=== PATIENT | female | born 1955 | race African-American/Black ===

== ENCOUNTER 2017-12-23 12:56 | Observation (INO) | payer OTHER ==
[~2017-12-23] VITALS: Ht 165.1 cm; Wt 70.4 kg
--- NOTE | 2017-12-23 13:00 | NUR ---
PT TO ROOM 9 VIA WC. PT ABLE TO STAND AND TRANSFER SELF WITHOUT ASSIST.
--- NOTE | 2017-12-23 13:40 | NUR ---
PATIENT MEDICATED PER MD ORDER TOLERATED WELL. CALL LIGHT GIVEN, INFORMED TO CALL FOR ASSISTACNE. VERBAL UNDERSTANDING.
[2017-12-23 13:57] LABS: HEMATOCRIT 27.6 % (37.0-47.0); HEMOGLOBIN 10.1 g/dl (12.0-16.0); IMMATURE GRANULOCYTES 0.2 % (0.0-1.0); MEAN CELL VOLUME 82.6 fL CALC (80.0-100.0); MEAN CORPUSCULAR HGB 30.2 pG CALC (26.0-32.0); MEAN CORPUSCULAR HGB CONC 36.6 g/L CALC (32.0-36.0); NEUT# 3.87 thou/uL (2.00-7.15); RED BLOOD COUNT 3.34 mill/uL (4.20-5.60); RED CELL DISTRI WIDTH 15.3 % (11.5-15.5)
--- NOTE | 2017-12-23 14:05 | NUR ---
NURSE CALLED TO ROOM. REPORTS HAVING TIGHTNESS OR GAS THAT STARTS AT EPIGASTRIC REGION AND RADIATES MIDSTRENALLY. REPORTS PRESSURE 7/10. PATIENT IS ALERT AND ORIENTED. RESPIRATIONS EVEN AND UNLABORED. VSS. AT BEDSIDE. WILL CONTINUE TO MONITOR.
[2017-12-23 14:14] LABS: ANION GAP 16 (6-22 (CALC)); BUN 13 mg/dL (8-23); BUN/CREATININE RATIO 14 (12-20 (CALC)); CARBON DIOXIDE 27 mmol/l (22-30); CHLORIDE 103 mmol/l (95-108); CREATININE 0.9 mg/dL (0.5-1.0); GFR > 60 ML/MIN (>=60 (CALC)); GFR FOR AFR.AMER. > 60 ML/MIN (>=60 (CALC)); POTASSIUM 3.5 mmol/l (3.5-5.1); SODIUM 143 mmol/l (137-146)
--- NOTE | 2017-12-23 14:38 | NUR ---
MD AT BEDSIDE TO DISCUSS RESULTS.
--- NOTE | 2017-12-23 15:50 | NUR ---
PATIENT RESTING ON STRETCHER WITH NO SIGNS OF DISTRESS NOTED. DENIES ANY NEEDS. WILL CONTINUE TO MONITOR.
[2017-12-23] MEDS ORDERED: AMLODIPINE BESYL5 MG PO (16:20)
[2017-12-23] MEDS ORDERED: HYZAAR1 TA1 PO (16:20)
[2017-12-23] MEDS ORDERED: FOLIC ACID1 MG PO (16:21)
--- NOTE | 2017-12-23 16:29 | NUR ---
MD AT BEDSIDE TO DISCUSS RESULTS.
[2017-12-23 16:51] LABS: INTERNATIONAL NORMALIZED RATIO 0.9 RATIO (0.7-1.3); PROTHROMBIN TIME 10.5 SECONDS (9.0-12.5)
--- NOTE | 2017-12-23 17:11 | NUR ---
PATIENT REPORTS NO CHEST PAIN OR CHEST PRESSURE.
--- NOTE | 2017-12-23 17:14 | NUR ---
REPORT GIVEN TO STEPHANIE REHMAN.
--- NOTE | 2017-12-23 17:23 | NUR ---
Admission Note Report Given to: SBAR PRINTED TO FLOOR Transported by: Wheelchair X Stretcher Transported with: X Nurse Transporter X Patent IV O2 X Epic Manager
--- NOTE | 2017-12-23 17:25 | NUR ---
PATIENT TRANSPORTED TO [facility] WITH TELE IN PLACE VIA STRETCHER. BEDSIDE REPORT GIVEN TO STEPHANIE REHMAN. CARE RELINQUISHED.
--- NOTE | 2017-12-23 17:25 | NUR ---
PT CAME FROM ER VIA STRETCHER BY STEPHANIE GALVEZ. STAND BY ASSIST TO SCALE THEN TO BED. SAFETY PRECAUTIONS REINFORCED AND CALL LIGHT IN REACH.
[2017-12-23 17:31] VITALS: BP 162/84
--- NOTE | 2017-12-23 17:58 | NUR ---
ASSESSMENT DONE AND TELE IN PLACE. RESPS EVEN AND UNLABORED. PT DENIES PAIN AT THIS TIME. #22 LW THAT APPEARS HEALTHY.PT DENIES NEEDS AT THIS TIME. CALL LIGHT IN REACH.
[2017-12-23 18:41] VITALS: BP 135/71
[2017-12-23 20:05] VITALS: BP 125/74
--- NOTE | 2017-12-23 20:30 | NUR ---
PT.IS IN BED W/LIGHTS OUT, V/S ASSESSED AND PT.ASSESSMENT COMPLETED AT THIS TIME. PT.DENIES ANY PAIN, TINGLING, DIZZINESS OR DISTRESS SINCE COMING TO THE UNIT FLOOR. NEURO'S INTACT.PT.IS ATTEMPTING TO SLEEP, LIGHTS TURNED BACK OFF, CALL LIGHT IS AT SIDE AND PT.ENCOURAGED TO CALL IF ANY NEEDS ARISE.
--- NOTE | 2017-12-23 22:50 | NUR ---
PT.IS IN BED W/LIGHTS AND TV OFF APPEARS TO BE SLEEPING. NO S/S OF DISTRESS NOTED AT THIS TIME. CALL LIGHT AT BEDSIDE.
[2017-12-24 00:05] VITALS: BP 119/69
--- NOTE | 2017-12-24 02:11 | NUR ---
PT.APPEARS TO BE SLEEPING AT THIS TIME, LIGHTS ARE OFF AND CALL LIGHT IS AT BEDSIDE.
--- NOTE | 2017-12-24 04:21 | NUR ---
PT.WAS ASLEEP UPON US ENTERING ROOM. PT.DENIES ANY FURTHER SYMPTOMS AND STATES, "I AM JUST READY TO GO HOME." NO S/S OF DISTRESS, NEURO'S INTACT, PT.LOCX3, DENIES ANYMORE "SPELLS" DESCRIBED OR PAIN. IV FLUSHED AND V/S ASSESSED AND LIGHTS BACK OFF FOR HER TO RETURN TO SLEEP. CALL LIGHT AT BEDSIDE.
[2017-12-24 05:05] VITALS: BP 120/78
--- NOTE | 2017-12-24 05:32 | NUR ---
ED CALLED TO REPORT A RHYTHM CHANGE IN PT.'S TELEMETRY READINGS. V/S AND PT.ASSESSED TO BE ASYMPTOMATIC AT THIS TIME, BP 120/78, HR 71. EKG ORDERED. PHYS WILL BE NOTIFIED.
--- NOTE | 2017-12-24 05:47 | NUR ---
NOTIFIED OF RHYTHM CHANGE AND EKG RESULTS. NO NEW ORDERS AT THIS TIME.
--- NOTE | 2017-12-24 06:20 | NUR ---
PT.IS GETTING IN A SHOWER AT THIS TIME, REPORTS NO PAIN OR DISTRESS AT THIS TIME. APPEARS TO BE FEELING WELL, SHE WAS AWAKE AND LISTENING TO MUSIC ON HER PHONE UPON ENTERING ROOM. I DISCUSSED POC W/PT.AND PROVIDED HER WITH ITEMS FOR SHOWER AND INSTRUCTED HER TO CALL IF ANY NEEDS ARISE.
[2017-12-24 06:34] LABS: CHOLESTEROL HDL RATIO 2.9 (<4.4 (CALC))
--- NOTE | 2017-12-24 07:36 | NUR ---
BEDSIDE REPORT RECIEVED FROM STEPHANIE WALLACE. PT SITTING UP IN CHAIR AFTER SHOWER. ALERT AND ORIENTED. DENIES CHEST PAIN CURRENTLY. RESPIRATIONS EVEN AND UNLABORED ON ROOM AIR. PLAN OF CARE DISCUSSED. PT ENCOURAGED TO VERBALIZE CONCERNS. STATES UNDERSTANDING. SAFETY MEASURES IN PLACE. CALL LIGHT WITHIN REACH.
[2017-12-24 07:53] VITALS: BP 148/82
[2017-12-24 08:46] VITALS: BP 148/82
--- NOTE | 2017-12-24 10:57 | NUR ---
Discharge instructions given. Patient verbalizes understanding of same. Discharged in stable condition via Ambulatory to Home with spouse. All belongings sent with pt.
== END 2017-12-24 10:57 | disposition home or self-care (01) | DRG 313 ==
LOC: ED 12:56 → ED-I 16:40 → ED 16:58 → MS2 16:59
PROVIDERS: Family Medicine; Nurse Practitioner Family; ADMIT Internal Medicine; ATTEND Internal Medicine
DX: R07.9 Chest pain, unspecified (principal); R42 Dizziness and giddiness; D57.1 Sickle-cell disease without crisis; I49.1 Atrial premature depolarization; I44.0 Atrioventricular block, first degree; M87.9 Osteonecrosis, unspecified; I10 Essential (primary) hypertension; I34.1 Nonrheumatic mitral (valve) prolapse
CPT/HCPCS: G0378

== ENCOUNTER → 2018-11-27 | Outpatient (REF) ==
[~2018-11-27] MED LIST: AMLODIPINE BESYL5 MG PO; FOLIC ACID1 MG PO; HYZAAR1 TA1 PO
[2018-11-27 08:32] LABS: CHOLESTEROL HDL RATIO 2.8 (<4.4 (CALC))
== END | disposition home or self-care (01) | DRG 951 ==
LOC: LAB 06:37
PROVIDERS: ATTEND Family Medicine
DX: Z02.6 Encounter for examination for insurance purposes (principal)

== ENCOUNTER 2021-03-22 13:15 | Emergency (ER) | payer OTHER, MEDICARE ==
[~2021-03-22] VITALS: Ht 165.1 cm; Wt 68.0 kg
[2021-03-22 17:33] VITALS: BP 151/84
== END 2021-03-22 17:39 | disposition home or self-care (01) | DRG 563 ==
LOC: ED 13:15
DX: S39.012A Strain of muscle, fascia and tendon of lower back, initial encounter (principal); I10 Essential (primary) hypertension; D57.1 Sickle-cell disease without crisis; I34.1 Nonrheumatic mitral (valve) prolapse; X50.0XXA Overexertion from strenuous movement or load, initial encounter; Y93.F9 Activity, other caregiving; Y99.0 Civilian activity done for income or pay

== ENCOUNTER 2022-01-15 13:17 | Emergency (ER) | payer OTHER, MEDICARE ==
[~2022-01-15] VITALS: Ht 165.1 cm; Wt 115.0 kg
[2022-01-15] MEDS ORDERED: NAPROXEN500 MG PO (15:23)
[2022-01-15 15:30] VITALS: BP 132/77
== END 2022-01-15 15:31 | disposition home or self-care (01) | DRG 563 ==
LOC: ED 13:17
DX: S39.012A Strain of muscle, fascia and tendon of lower back, initial encounter (principal); M47.27 Other spondylosis with radiculopathy, lumbosacral region; I10 Essential (primary) hypertension; I34.1 Nonrheumatic mitral (valve) prolapse; D57.1 Sickle-cell disease without crisis; W22.09XA Striking against other stationary object, initial encounter; Y92.239 Unspecified place in hospital as the place of occurrence of the external cause; Y99.0 Civilian activity done for income or pay

== ENCOUNTER 2023-03-23 02:27 | Emergency (ER) | payer MEDICARE ==
[~2023-03-23] VITALS: Ht 165.1 cm; Wt 66.0 kg
[2023-03-23] VITALS (19 sets, daily range): BP systolic 122–177; BP diastolic 77–100
[~2023-03-23 02:27] MED LIST changes: +NAPROXEN500 MG PO
[2023-03-23 03:48] LABS: BASO% 0.7 % (0-3); HEMOGLOBIN 11.2 g/dl (12.0-16.0); IMMATURE GRANULOCYTES 0.6 % (0.0-5.0); LYMPH% 37.7 % (15-41); MEAN CELL VOLUME 85.2 fL CALC (80.0-100.0); MEAN CORPUSCULAR HGB 30.8 pG CALC (26.0-32.0); MEAN CORPUSCULAR HGB CONC 36.1 g/dL CAL (32.0-36.0); MONO% 7.6 % (2-13); NEUT# 4.54 thou/uL (2.00-7.15); NEUT% 50.4 % (42-76); RED BLOOD COUNT 3.64 mill/uL (4.20-5.60); RED CELL DISTRI WIDTH 14.8 % (11.5-15.5)
[2023-03-23 03:58] LABS: LIPASE 66 u/l (23-300)
[2023-03-23 04:03] LABS: PROTHROMBIN TIME 9.7 SECONDS (9.0-12.5)
[2023-03-23 04:06] LABS: D-DIMER 2.31 mg/L (0.19-0.60)
[2023-03-23 04:35] LABS: ALBUMIN 4.2 g/dL (3.2-5.0); ALKALINE PHOSPHATASE 64 u/l (38-126); ANION GAP 12 (6-22 (CALC)); BILIRUBIN, TOTAL 1.2 mg/dL (0.02-1.3); BUN 14 mg/dL (8-23); BUN/CREATININE RATIO 20 (12-20 (CALC)); CARBON DIOXIDE 25 mmol/l (22-30); CHLORIDE 108 mmol/l (95-108); CREATININE 0.7 mg/dL (0.5-1.0); GFR FOR AFR.AMER. > 60 ML/MIN (>=60 (CALC)); GFR OTHER RACES > 60 ML/MIN (>=60 (CALC)); POTASSIUM 3.9 mmol/l (3.5-5.1); SGOT/AST 54 u/l (9-36); SODIUM 141 mmol/l (137-146); TOTAL PROTEIN 7.3 g/dL (6.3-8.2)
[2023-03-23] MEDS ORDERED: ZITHROMAX250 MG PO ×2 (07:58→13:20)
[2023-03-23] MEDS ORDERED: MEDDOSEPAK PO ×2 (07:58→13:20)
[2023-03-23] MEDS ORDERED: IBUPROFEN600 MG PO ×2 (07:58→13:20)
== END 2023-03-23 08:32 | disposition home or self-care (01) ==
LOC: ED 02:27
PROVIDERS: Family Medicine
DX: M94.0 Chondrocostal junction syndrome [Tietze] (principal); J40 Bronchitis, not specified as acute or chronic; R47.01 Aphasia; I10 Essential (primary) hypertension; D57.1 Sickle-cell disease without crisis; I34.1 Nonrheumatic mitral (valve) prolapse
CPT/HCPCS: Q9967